=== PATIENT | male | born 1965 | race Native Hawaiian/Other Pacific Islander ===

== ENCOUNTER 2021-03-20 06:49 | Observation (INO) | payer BC ==
[2021-03-20] VITALS (7 sets, daily range): BP systolic 117–174; BP diastolic 70–99; TEMP 98.1–99.1; Ht 175.3 cm; Wt 96.4 kg
[~2021-03-20] VITALS: Ht 175.3 cm; Wt 96.4 kg
[2021-03-20 07:26] LABS: PLATELET COUNT 124 K/uL (142-355)
[2021-03-20 07:38] LABS: POTASSIUM 3.7 mmol/L (3.6-5.2)
[2021-03-20 08:01] LABS: PARTIAL THROMBOPLASTIN TIME 24.7 SECONDS (24.5-33.6)
[2021-03-20] MEDS ORDERED: OMEP40CA PO (14:20)
[2021-03-21] VITALS: BP 109/68; TEMP 98.4
[2021-03-21 04:14] VITALS: BP 115/69; TEMP 98
[2021-03-21 08:00] VITALS: BP 110/65; TEMP 99
[2021-03-21 12:00] VITALS: BP 106/61; TEMP 98.5
== END 2021-03-21 15:45 | disposition home or self-care (01) ==
LOC: ED 06:49 → MED/SURG 07:55
PROVIDERS: Hospitalist; ADMIT Internal Medicine Endocrinology, Diabetes & Metabolism; ATTEND Internal Medicine Endocrinology, Diabetes & Metabolism
DX: R07.89 Other chest pain (principal); I10 Essential (primary) hypertension; K21.9 Gastro-esophageal reflux disease without esophagitis; E66.8 Other obesity; Z72.0 Tobacco use; R20.2 Paresthesia of skin; Z68.31 Body mass index [BMI] 31.0-31.9, adult
CPT/HCPCS: 36415; 80053; 82550; 83880; 84484; 85027; 85610; 85730; 87635; 93005; 96374; 99220; 99284; G0378; J1650; J2405; U0003